=== PATIENT | female | born 1945 | race Caucasian/White ===

== ENCOUNTER → 2016-02-27 | Outpatient (CLI) | payer OTHER, BC ==
[~2016-02-27] MED LIST: ALIGN4 MG PO; ARTHROTEC 501 TABLET PO; ARTHROTEC 751 TABLET PO; CREON 241 CAPSULE PO; EVISTA60 MG PO; FENTANYL1 EAC4 TD; FISH OIL CONC1 EACH PO; GLUCOSAMINE CH1 EAC2 PO; HYDROCHLOROTHIA25 MG PO; LEVOTHROID25 MCG PO; LIBRAX, CLI1 CAPSULE PO; LO-DOSE ASPIRIN81 M1 PO; LOTREL 5/101 CAPSULE PO; LOVAZA1 GM PO; LYRICA50 MG PO; MEDROL DOSEPAK4 MG PO; NEXIUM40 MG PO; OXYCODONE HCL5 MG PO; RANITIDINE HCL300 M1 PO; TYLENOL EXTRA500 MG PO; VALIUM2 MG PO; VITAMIN D-32000 UNI1 PO; VITAMIN D-32000 UNIT PO; WELCHOL625 MG PO; ZETIA10 MG PO; [UNRECOGNIZED DRUG - SUPPLY] PO
== END | disposition home or self-care (01) ==
LOC: OPR 08:57 → EDSTATUS 09:00
PROC: 0BBJ3ZX Excision of Left Lower Lung Lobe, Percutaneous Approach, Diagnostic (ICD-10-PCS; principal; 2016-02-27)
DX: D3A.090 Benign carcinoid tumor of the bronchus and lung (principal); E78.5 Hyperlipidemia, unspecified; E03.9 Hypothyroidism, unspecified; I10 Essential (primary) hypertension
CPT/HCPCS: 71010; 77012; 88305; 88341 TC; 88342 TC; J3010